=== PATIENT | male | born 1970 | race African-American/Black ===

== ENCOUNTER 2020-02-02 08:25 | Emergency (ER) | payer MEDICAID, OTHER ==
[~2020-02-02] VITALS: Ht 185.4 cm; Wt 74.8 kg
[2020-02-02] MEDS ORDERED: SODIUM CHLORIDE 0.9% 1,000 ML IV ONE (09:31)
[2020-02-02] MEDS ORDERED: SODIUM CHLORIDE 0.9% 1,000 ML IVB ONE (09:31)
[2020-02-02] MEDS ORDERED: MORPHINE SULFATE 4 MG/ML SYR/VIAL IV ONE (09:45)
[2020-02-02] MEDS ORDERED: ONDANSETRON HCL 4 MG/2 ML VIAL IV ONE (09:45)
[2020-02-02 10:18] LABS: Basophils # (auto) 0 10 ^3/uL (0-0.2); Basophils % (auto) 0.4 % (0.0-2.0); Eosinophils # (auto) 0 10 ^3/uL (0-0.8); Eosinophils % (auto) 0.4 % (0.0-7.0); Hematocrit 44.2 % (41.0-53.0); Hemoglobin 14.8 g/dL (13.5-17.5); Lymphocytes # (auto) 1.7 10 ^3/uL (0.4-5.4); Lymphocytes % (auto) 23.6 % (10.0-50.0); Mean Corpuscular Hemoglobin 29.7 pg (28.0-32.0); Mean Corpuscular Hgb Conc. 33.5 g/dL (32.0-36.0); Mean Corpuscular Volume 88.7 fL (80.0-100.0); Monocytes # (auto) 0.5 10 ^3/uL (0-1.3); Monocytes % (auto) 6.8 % (0.0-12.0); Neutrophils % (auto) 68.8 % (37.0-80.0); Nucleated Red Blood Cells % 0.1 %; Platelet Count (auto) 296 10^3/uL (140-450); Red Blood Cells 4.99 10^6/uL (4.5-5.90); Red Cell Distribution Width 12.6 % (11.8-14.3); White Blood Cell 7.3 10^3/uL (4.4-10.8)
[2020-02-02 10:33] LABS: Albumin 3.9 g/dL (3.4-5.0); Anion Gap 9 (5-15); Blood Urea Nitrogen 27 mg/dL (7-18); Calcium 9.4 mg/dL (8.5-10.1); Carbon Dioxide 26 mmol/L (21-32); Chloride 99 mmol/L (98-107); Glucose 238 mg/dL (74-106); Potassium 3.9 mmol/L (3.5-5.1); Sodium 134 mmol/L (136-145)
[2020-02-02 10:39] LABS: Alanine Aminotransferase 17 U/L (16-61); Alkaline Phosphatase 126 U/L (45-117); Aspartate Aminotransferase 13 U/L (15-37); BUN/Creatinine Ratio 26.2; Bilirubin, Total 0.8 mg/dL (0.2-1.0); GFR African American 99 mL/min; GFR Non-African American 82 mL/min; Total Protein 8.4 g/dL (6.4-8.2)
[2020-02-02 12:20] LABS: Urine Bacteria NONE SEEN /hpf (None Seen); Urine Blood 1+ /uL (Negative); Urine Hyaline Cast FEW /lpf (0 - 2); Urine Mucus FEW (None Seen); Urine Specific Gravity 1.019 (1.001-1.035); Urine WBC 3 /hpf (0 - 3)
[2020-02-02 12:29] VITALS: BP 127/84
== END 2020-02-02 12:27 | disposition home or self-care (01) ==
LOC: ER 08:25
DX: K52.9 Noninfective gastroenteritis and colitis, unspecified (principal); E86.0 Dehydration; E11.65 Type 2 diabetes mellitus with hyperglycemia; F17.210 Nicotine dependence, cigarettes, uncomplicated
CPT/HCPCS: 36415; 74176; 80053; 81001; 84484; 85025; 96361; 96374; 96375; 99285; J2270; J2405; J7030

== ENCOUNTER 2020-02-04 03:51 | Inpatient (IN) | payer MEDICAID ==
[~2020-02-04] VITALS: Ht 185.4 cm; Wt 72.7 kg
[2020-02-04] MEDS ORDERED: MORPHINE SULFATE 4 MG/ML SYR/VIAL IV ONE (04:15)
[2020-02-04] MEDS ORDERED: SODIUM CHLORIDE 0.9% 1,000 ML IV ONE ×3 (04:15→06:53)
[2020-02-04] MEDS ORDERED: ONDANSETRON HCL 4 MG/2 ML VIAL IV ONE (04:15)
[2020-02-04 04:58] LABS: Basophils # (auto) 0 10 ^3/uL (0-0.2); Basophils % (auto) 0.4 % (0.0-2.0); Eosinophils # (auto) 0.1 10 ^3/uL (0-0.8); Eosinophils % (auto) 1.1 % (0.0-7.0); Hematocrit 42.4 % (41.0-53.0); Hemoglobin 14.4 g/dL (13.5-17.5); Lymphocytes # (auto) 2.2 10 ^3/uL (0.4-5.4); Mean Corpuscular Volume 88.2 fL (80.0-100.0); Monocytes # (auto) 0.7 10 ^3/uL (0-1.3); Monocytes % (auto) 6.8 % (0.0-12.0); Neutrophils # (auto) 6.8 10 ^3/uL (1.6-8.6); Neutrophils % (auto) 69.7 % (37.0-80.0); Nucleated Red Blood Cells % 0.1 %; Platelet Count (auto) 311 10^3/uL (140-450); Red Cell Distribution Width 12.7 % (11.8-14.3); White Blood Cell 9.8 10^3/uL (4.4-10.8)
[2020-02-04 05:19] LABS: Chloride 99 mmol/L (98-107); Sodium 133 mmol/L (136-145)
[2020-02-04 05:24] LABS: Amylase 70 U/L (25-115); Anion Gap 7 (5-15); BUN/Creatinine Ratio 26.7; Blood Urea Nitrogen 28 mg/dL (7-18); Calcium 9.2 mg/dL (8.5-10.1); Carbon Dioxide 27 mmol/L (21-32); GFR African American 97 mL/min; GFR Non-African American 80 mL/min; Glucose 272 mg/dL (74-106); Lipase 146 U/L (73-393); Magnesium 2.1 mg/dL (1.6-2.6)
[2020-02-04] MEDS ORDERED: metroNIDAZOLE 500MG/100ML 100 ML IV ONE (07:00)
[2020-02-04] MEDS ORDERED: PIPERACILLIN-TAZOB 3.375GM 100 ML IV ONE (07:00)
[2020-02-04] MEDS ORDERED: KETOROLAC TROMETH 30 MG/ML 1ML VIAL IV ONE (08:15)
[2020-02-04] MEDS ORDERED: MORPHINE SULF INJ 2 MG/ML SYRINGE 1ML IV PRN (09:30)
[2020-02-04] MEDS ORDERED: NITROGLYCERIN 0.4 MG SL TAB SL PRN (09:30)
[2020-02-04] MEDS ORDERED: LABETALOL HCL 5 MG/ML ML 20ML VIAL IV PRN (10:30)
[2020-02-04] MEDS ORDERED: PROMETHAZINE HCL 25 MG/ML 1ML IV PRN (10:30)
[2020-02-04] MEDS ORDERED: DEXTROSE (50%) 50ML SYRG IV PRN (10:30)
[2020-02-04] MEDS ORDERED: PANTOPRAZOLE 40 MG TAB PO ONE (10:30)
[2020-02-04] MEDS ORDERED: ACETAMINOPHEN 500 MG TAB PO PRN (10:30)
[2020-02-04] MEDS ORDERED: TEMAZEPAM 15 MG CAP PO PRN (10:30)
[2020-02-04 10:40] VITALS: BP 162/104
--- NOTE | 2020-02-04 11:00 | NUR ---
Telemetry admit from [facility] admitted to Telemetry unit after SBAR received. Patient oriented to LILIANA RUSH, primary RN, unit, room, bed, and unit policies regarding patient care and visiting hours. Patient now on continuous telemetry monitoring, tele box # [id number] and telemetry reading on arrival to unit is . Patient placed on bedside oxygen, weighed by bed scale and encouraged to call if they need something. All questions and concerns addressed, patient verbalized understanding.
[2020-02-04] MEDS: SODIUM CHLORIDE 0.9% 1,000 ML IV SCH ×2 (11:41→20:24)
[2020-02-04] MEDS: InsuLIN REG 1unit/0.01ml Soln (100units/ml) SC SCH ×2 (11:45→17:51)
[2020-02-04] MEDS: ACCU-CHEK COMFORT CURVE STRIP VI SCH ×2 (11:46→17:50)
[2020-02-04 12:30] VITALS: BP 164/95
[2020-02-04 15:38] LABS: INR 1.05 (0.9-1.15)
[2020-02-04] MEDS: traMADol HCL 50 MG TAB PO PRN (16:43)
[2020-02-04 17:00] VITALS: BP 157/94
[2020-02-04 17:24] LABS: Amphetamine Screen, Urine NEGATIVE (NEGATIVE); Barbiturate Scree,Urine NEGATIVE (NEGATIVE); Benzodiazephine Screen, Urine NEGATIVE (NEGATIVE); Cannabinoid Screen, Urine POSITIVE (NEGATIVE); Cocaine Screen, Urine NEGATIVE (NEGATIVE); Opiate Scree,Urine NEGATIVE (NEGATIVE); Phencyclidine Screen, Urine NEGATIVE (NEGATIVE)
[2020-02-04 17:28] LABS: Urine Bacteria FEW /hpf (None Seen); Urine Blood Negative /uL (Negative); Urine Specific Gravity 1.014 (1.001-1.035); Urine WBC 1 /hpf (0 - 3)
[2020-02-04 17:39] LABS: Alcohol, Urine < 3.0 mg/dL (0-10)
[2020-02-04 22:00] VITALS: BP 118/82
[2020-02-05] MEDS: PANTOPRAZOLE 40 MG TAB PO SCH ×3 (00:06→22:06)
[2020-02-05] MEDS: ACCU-CHEK COMFORT CURVE STRIP VI SCH ×5 (00:08→22:07)
[2020-02-05] MEDS: InsuLIN REG 1unit/0.01ml Soln (100units/ml) SC SCH ×5 (00:08→22:08)
[2020-02-05 05:00] VITALS: BP 128/80
[2020-02-05 05:38] LABS: Albumin 3.5 g/dL (3.4-5.0); BUN/Creatinine Ratio 22.4; Calcium 9.1 mg/dL (8.5-10.1)
[2020-02-05 05:40] LABS: Bilirubin, Total 0.8 mg/dL (0.2-1.0); Total Protein 7.3 g/dL (6.4-8.2)
[2020-02-05 05:54] LABS: Potassium 2.8 mmol/L (3.5-5.1)
--- NOTE | 2020-02-05 05:55 | NUR ---
Critical Potassium of 2.8 received by lab.
--- NOTE | 2020-02-05 05:56 | NUR ---
Hospitalist paged at this time.
[2020-02-05] MEDS: SODIUM CHLORIDE 0.9% 1,000 ML IV SCH (06:24)
--- NOTE | 2020-02-05 06:45 | NUR ---
Hospitalist Sean Knight PAYROLL COORDINATOR returned page and new orders received to give Potassium 40meq PO now.
[2020-02-05] MEDS ORDERED: POTASSIUM CHL 20 Meq TABLET PO ONE (07:00)
[2020-02-05 08:00] VITALS: BP 145/99
--- NOTE | 2020-02-05 08:45 | NUR ---
Patient left to OR.
[2020-02-05] MEDS ORDERED: LIDOCAINE VISCOUS 2% 15ML UD ONE (09:01)
[2020-02-05] MEDS ORDERED: SODIUM CHLORIDE LOCK 10 ML ONE (09:01)
[2020-02-05] MEDS ORDERED: diphenhdrAMINE HCL 50 MG/1 ML VL ONE (09:02)
[2020-02-05] MEDS: ENOXAPARIN SOD 40 MG/0.4 ML SYRINGE SC SCH (09:41)
[2020-02-05] MEDS: MIDAZOLAM HCL 5 MG/ML-1ML VIAL ONE ×2 (10:05→10:09)
[2020-02-05] MEDS: fentaNYL CITRATE 100 MCG/2 ML VL ONE ×2 (10:05→10:09)
[2020-02-05] MEDS ORDERED: POTASSIUM EFFERVESENT TAB 25 MEQ PO ONE (10:15)
--- NOTE | 2020-02-05 10:57 | NUR ---
Patient came back from OR, awake, alert, oriented x 4 and verbally responsive. No respiratory distress noted.
[2020-02-05 11:00] VITALS: BP 125/78
[2020-02-05 12:00] VITALS: BP 113/84
--- NOTE | 2020-02-05 16:00 | NUR ---
Jemal NUNN at bedside, stated patient does not need urology intervention.
--- NOTE | 2020-02-05 18:05 | NUR ---
Dr. Cody Boswell at bedside, stated patient does not need a surgery.
[2020-02-05] MEDS ORDERED: cefTRIAXone 1GM/50ML D5W 50 ML IV ONE (18:30)
[2020-02-05 22:00] VITALS: BP 124/81
[2020-02-05] MEDS: traMADol HCL 50 MG TAB PO PRN (22:07)
[2020-02-06 05:00] VITALS: BP 154/93
[2020-02-06] MEDS: InsuLIN REG 1unit/0.01ml Soln (100units/ml) SC SCH ×4 (05:58→22:06)
[2020-02-06] MEDS: ACCU-CHEK COMFORT CURVE STRIP VI SCH ×4 (05:58→22:06)
[2020-02-06 06:08] LABS: Potassium 3.8 mmol/L (3.5-5.1)
[2020-02-06 06:13] LABS: BUN/Creatinine Ratio 24.7; Calcium 9.3 mg/dL (8.5-10.1)
--- NOTE | 2020-02-06 06:29 | NUR ---
URINE SENT FOR UA NOW. Addendum: 02/06/20 at 0631 by MAGED ONEILL RN CORRECTION; URINE BACTERIA CULTURE
[2020-02-06 08:00] VITALS: BP_SYST 130; BP_SYST 163; BP_DIAS 88; BP_DIAS 90
--- NOTE | 2020-02-06 08:00 | NUR ---
ASSESSMENT NOTE PT IS ALERT ORIENTED X4, RESTING IN BED COMFORTABLY, NO DISTRESS NOTED, ABLE TO SELF REPOSITION AND VERBALIS HIS DEMANDS, ABDOMEN SOFT, DENIES ANY ABDOMEN PAIN 0/10, CALL LIGHT WITHIN REACH
[2020-02-06] MEDS: cefTRIAXone 1GM/50ML D5W 50 ML IV SCH (08:45)
[2020-02-06] MEDS: PANTOPRAZOLE 40 MG TAB PO SCH ×2 (08:45→22:05)
[2020-02-06] MEDS: ENOXAPARIN SOD 40 MG/0.4 ML SYRINGE SC SCH (08:46)
--- NOTE | 2020-02-06 10:40 | NUR ---
DR LOCO AT BED SIDE FOLLOWING UP ON PT WITH NEW ORDERS
[2020-02-06 12:00] VITALS: BP 140/92
--- NOTE | 2020-02-06 12:00 | NUR ---
PT TOLERATING DIET WELL, NO DISTRESS NOTED, USE URINAL NEEDED, CONTINUE MONITORING
[2020-02-06 17:00] VITALS: BP 147/95
--- NOTE | 2020-02-06 18:51 | NUR ---
PT CONTINUE STABLE, CONTINUE MONITORING
[2020-02-06 22:00] VITALS: BP 131/77
[2020-02-07 05:00] VITALS: BP 129/73
[2020-02-07] MEDS: InsuLIN REG 1unit/0.01ml Soln (100units/ml) SC SCH ×2 (06:00→12:00)
[2020-02-07 07:04] LABS: Basophils # (auto) 0 10 ^3/uL (0-0.2); Basophils % (auto) 0.9 % (0.0-2.0); Eosinophils # (auto) 0.1 10 ^3/uL (0-0.8); Eosinophils % (auto) 1.6 % (0.0-7.0); Hematocrit 38.7 % (41.0-53.0); Hemoglobin 12.9 g/dL (13.5-17.5); Lymphocytes # (auto) 2.2 10 ^3/uL (0.4-5.4); Lymphocytes % (auto) 42.8 % (10.0-50.0); Mean Corpuscular Hemoglobin 29.5 pg (28.0-32.0); Mean Corpuscular Hgb Conc. 33.4 g/dL (32.0-36.0); Mean Corpuscular Volume 88.1 fL (80.0-100.0); Monocytes # (auto) 0.4 10 ^3/uL (0-1.3); Monocytes % (auto) 7.6 % (0.0-12.0); Neutrophils # (auto) 2.4 10 ^3/uL (1.6-8.6); Neutrophils % (auto) 47.1 % (37.0-80.0); Nucleated Red Blood Cells % 0.1 %; Platelet Count (auto) 297 10^3/uL (140-450); Red Blood Cells 4.39 10^6/uL (4.5-5.90); Red Cell Distribution Width 12.6 % (11.8-14.3); White Blood Cell 5.2 10^3/uL (4.4-10.8)
[2020-02-07] MEDS: ACCU-CHEK COMFORT CURVE STRIP VI SCH ×2 (07:08→12:29)
[2020-02-07 07:21] LABS: Potassium 3.8 mmol/L (3.5-5.1)
[2020-02-07 07:24] LABS: Albumin 3.3 g/dL (3.4-5.0); BUN/Creatinine Ratio 24.4; Calcium 8.9 mg/dL (8.5-10.1)
[2020-02-07 07:51] LABS: INR 1.06 (0.9-1.15); Partial Thromboplastin Time 27.5 sec (23.64-32.05)
[2020-02-07 07:58] LABS: Bilirubin, Total 0.6 mg/dL (0.2-1.0); Magnesium 2.5 mg/dL (1.6-2.6); Phosphorus 3.6 mg/dL (2.5-4.90); Total Protein 6.9 g/dL (6.4-8.2)
[2020-02-07 08:00] VITALS: BP 163/90
[2020-02-07 08:41] VITALS: BP 119/85
[2020-02-07] MEDS: PANTOPRAZOLE 40 MG TAB PO SCH (09:05)
[2020-02-07] MEDS: ENOXAPARIN SOD 40 MG/0.4 ML SYRINGE SC SCH (09:06)
[2020-02-07] MEDS: cefTRIAXone 1GM/50ML D5W 50 ML IV SCH (09:06)
--- NOTE | 2020-02-07 10:00 | NUR ---
PT IS AMBULATING IN THE HALLWAYS, NO DISTRESS NOTED
--- NOTE | 2020-02-07 12:00 | NUR ---
DR LOCO AT BED SIDE AT BED SIDE FOLLOWING UP ON PT WITH DISCHARGE HOME INSTRUCTION, OBTAIN HOME PHARMACY FROM PT
--- NOTE | 2020-02-07 12:01 | NUR ---
Est energy needs 7665-5908 kcal (25-30 kcal/kg BW 72.7kg) Est protein needs 73-80g (1-1.1g/kg BW 72.7kg d/t 87% IBW) Will reassess prn. Addendum: 02/07/20 at [address] Amended: Links added.
[2020-02-07 12:36] VITALS: BP 163/90
[2020-02-07 12:41] VITALS: BP 122/88
[2020-02-07] MEDS ORDERED: METF-372 PO (14:59)
[2020-02-07] MEDS ORDERED: LISI-646 PO (14:59)
[2020-02-07] MEDS ORDERED: SUCR1TAB38 PO (14:59)
[2020-02-07] MEDS ORDERED: PANT40T PO (14:59)
[2020-02-07] MEDS ORDERED: SITA50TA PO (14:59)
[2020-02-07] MEDS ORDERED: ATOR20TA50 PO (14:59)
--- NOTE | 2020-02-07 16:30 | NUR ---
PT IS WAITING FOR HIS COUSIN TO PICK HIM UP
--- NOTE | 2020-02-07 16:46 | NUR ---
Discharge instructions given as ordered. Encourage to follow up with PMD as instructed. All questions and concerns addressed. Patient verbalized understanding. Medication reconciliation form completed and copy given to patient. \. IV removed with catheter intact, pressure dressing applied. Telemetry unit returned to ICU. Patient taken to vehicle via wheelchair with all personal belongings, accompanied by staff and family member. No distress noted at time of departure.
== END 2020-02-07 16:45 | disposition home or self-care (01) | DRG 241 ==
LOC: ER 03:52 → TELE 03:53 → TELE-CENTR 11:24
PROVIDERS: ADMIT Internal Medicine; ATTEND Internal Medicine Nephrology
PROC: 0DB68ZX Excision of Stomach, Via Natural or Artificial Opening Endoscopic, Diagnostic (ICD-10-PCS; principal; 2020-02-05 10:00)
DX: K29.70 Gastritis, unspecified, without bleeding (principal); E11.65 Type 2 diabetes mellitus with hyperglycemia; K29.80 Duodenitis without bleeding; E87.1 Hypo-osmolality and hyponatremia; E86.0 Dehydration; I10 Essential (primary) hypertension; N28.89 Other specified disorders of kidney and ureter; N28.1 Cyst of kidney, acquired; E87.6 Hypokalemia; F17.210 Nicotine dependence, cigarettes, uncomplicated; Z83.3 Family history of diabetes mellitus
CPT/HCPCS: 36415; 43239; 71045; 74176; 76705; 80048; 80053; 80307; 81001; 82010; 82150; 82962; 83036; 83690; 83735; 84100; 84132; 84484; 85025; 85610; 85730; 87081; 87086; 96361; 96365; 96366; 96367; 96368; 96375; G0378; J0696; J1815; J1885; J2250; J2405; J2543; J3490